=== PATIENT | female | born 1980 | race Caucasian/White ===

== ENCOUNTER 2016-07-12 00:29 | Emergency (ER) | payer MEDICAID, OTHER ==
[~2016-07-12] VITALS: Ht 172.7 cm; Wt 65.8 kg
[~2016-07-12 00:29] MED LIST: HYDROCHLOROTHIAZIDE PO; LYR50 PO; MORPHINE; NORCO; VIT K
[2016-07-12 00:32] VITALS: BP 117/68; PULSE 68; RESP 16; TEMP 98.6; O2SAT 98
[2016-07-12 06:20] VITALS: BP 142/86; PULSE 74; RESP 17; TEMP 98.6; O2SAT 99
== END 2016-07-12 06:20 | disposition home or self-care (01) ==
LOC: SED 00:29
DX: F10.229 Alcohol dependence with intoxication, unspecified (principal); F41.9 Anxiety disorder, unspecified
CPT/HCPCS: 99283